=== PATIENT | male | born 1980 | race Hispanic/Latino ===

== ENCOUNTER 2017-10-28 07:16 | Observation (INO) | payer BC ==
[2017-10-27 09:58] LABS: BASOPHILS # (AUTO) 0.1 (0.0-0.1); BASOPHILS % 0.7 % (0.0-1.0); EOSINOPHILS # (AUTO) 0.2 (0.0-0.4); EOSINOPHILS % 1.7 % (0.0-6.0); HEMATOCRIT 45.8 % (38.2-49.6); HEMOGLOBIN 16.4 g/dL (14.0-18.0); LYMPHOCYTES # (AUTO) 2.8 (1.0-3.2); LYMPHOCYTES % 30.8 % (18.0-39.1); MEAN CORPUSCULAR HEMOGLOBIN 31.2 pg (28-32); MEAN CORPUSCULAR HGB CONC 35.8 g/dL (31-35); MEAN CORPUSCULAR VOLUME 87.2 fL (81-99); MONOCYTES # (AUTO) 0.7 (0.2-0.8); MONOCYTES % 7.5 % (4.4-11.3); NEUTROPHILS # (AUTO) 5.4 (2.1-6.9); PLATELET COUNT 273 x10e3/uL (140-360); RED BLOOD COUNT 5.25 x10e6/uL (4.3-5.7); RED CELL DISTRIBUTION WIDTH 12.8 % (11.7-14.4)
[~2017-10-28] VITALS: Ht 170.2 cm; Wt 84.4 kg
[2017-10-28] MEDS ORDERED: BUPIVACAINE 0.25% 30ML SDV INJ ONE (09:57)
[2017-10-28] MEDS: DEXTROSE 5%/LACTATED RINGERS 1,000 ML IV SCH ×2 (12:39→20:46)
[2017-10-28] MEDS ORDERED: KETOROLAC TROMETHAMINE 30 MG/ML VIAL IV PRN (12:45)
[2017-10-28] MEDS ORDERED: ACETAMINOPHEN 1000 MG/100 ML IV PRN (12:45)
[2017-10-28] MEDS ORDERED: HYDROMORPHONE 1MG/1ML INJ IV PRN (12:45)
[2017-10-28 13:49] VITALS: BP 125/75
[2017-10-28] MEDS ORDERED: CEFAZOLIN SOD 1 GM/NS 50ML 50 ML IV SCH (14:00)
[2017-10-28] MEDS ORDERED: PANTOPRAZOLE 40 MG 10ML VIAL IV SCH (14:00)
--- NOTE | 2017-10-28 15:04 | Operative Report ---
DATE OF PROCEDURE: October 28, 2017 PREOPERATIVE DIAGNOSIS: Recurrent ventral hernia. POSTOPERATIVE DIAGNOSIS: Recurrent ventral hernia. OPERATION PERFORMED: Repair of recurrent ventral hernia with Physiomesh. ANESTHESIA: General. COMPLICATIONS: None. ESTIMATED BLOOD LOSS: Minimal. DESCRIPTION OF PROCEDURE: With the patient lying in bed in the supine position, under good general endotracheal anesthesia, the abdomen was prepped with Betadine solution and draped in the usual manner. A midline incision was performed above the umbilicus and immediately herniation was encountered about an inch above the umbilicus. This was dissected all the way circumferentially. The patient had a previous repair with Ultrapro mesh. The mesh was very well incorporated and the patient had simply blown a hole right through the center of the of the Ultrapro mesh. There were several other small holes around the larger hole. All of the hernias were then slowly and carefully dissected and reduced back to the intra-abdominal cavity. The smaller holes were then closed with interrupted sutures of 0 Ethibond. Examination at this point did not reveal any other defects, but the area that had to be repaired was large. We decided the best way to do it was to repair it from underneath since the rest of the Ultrapro mesh appeared to be intact. A Physiomesh, the small one was then placed intra-abdominally and 6 sutures were used in each corner using 0 Prolene to anchor all 6 corners, and after this was done, the mesh was then further tacked with the tacker all the way around. This gave us a satisfactory closure without any tension. After this was done, the hernia defect was then closed transversely using interrupted sutures of 0 Ethibond. The subcutaneous tissue was then inspected and hemostasis was ascertained. All layers were infiltrated on the way out with solution of 0.25% Marcaine. Subcutaneous tissue was approximated with 2-0 Vicryl and the skin was closed with clips. A dressing was applied. The sponge, lap, and needle count was correct. The patient tolerated the procedure well and returned to the recovery room in stable condition. Job#: [id number]
[2017-10-28] MEDS ORDERED: GLYCOPYRROLATE INJ 1MG/ 5 ML SYR ONE (15:09)
[2017-10-28] MEDS ORDERED: ACETAMINOPHEN 1000 MG/100 ML IV ONE (15:09)
[2017-10-28] MEDS ORDERED: KETOROLAC TROMETHAMINE 30 MG/ML VIAL ONE (15:09)
[2017-10-28] MEDS ORDERED: ROCURONIUM BROMIDE 10 MG/ML 5ML VIAL ONE (15:09)
[2017-10-28] MEDS ORDERED: LIDOCAINE HCL 2% LOCAL INJ 5 ML SDV VIAL INJ ONE (15:09)
[2017-10-28] MEDS ORDERED: PROPOFOL IV EMULSION 10 MG/ML 20 ML VIAL ONE (15:09)
[2017-10-28] MEDS ORDERED: DEXAMETHASONE SOD PHOS INJ 4 MG/ML VIAL ONE (15:09)
[2017-10-28] MEDS ORDERED: ONDANSETRON HCL INJ 2 MG/ML VIAL ONE (15:09)
[2017-10-28] MEDS ORDERED: SEVOFLURANE INHAL SOLN 250 ML PEN BTL ONE (15:09)
[2017-10-28] MEDS ORDERED: NEOSTIGMINE 5 MG/5ML SYR ONE (15:09)
[2017-10-28] MEDS ORDERED: MIDAZOLAM HCL 2 MG/2 ML VIAL ONE (15:57)
[2017-10-28] MEDS ORDERED: FENTANYL CITRATE/PF 100MCG/2 ML INJ ONE (15:57)
[2017-10-28 16:29] VITALS: BP 125/75
[2017-10-28 20:00] VITALS: BP 115/66
[2017-10-28] MEDS: CEFAZOLIN SOD 1 GM VIAL IV SCH (20:35)
[2017-10-28] MEDS: HYDROCODONE/APAP 7.5MG-325MG 1 EA TAB PO PRN (23:25)
[2017-10-29] VITALS: BP 115/66
[2017-10-29 00:55] VITALS: BP 121/71
[2017-10-29] MEDS: CEFAZOLIN SOD 1 GM VIAL IV SCH (01:05)
[2017-10-29 04:00] VITALS: BP 108/54
[2017-10-29 06:45] LABS: BASOPHILS % 0.2 % (0.0-1.0); EOSINOPHILS % 0.2 % (0.0-6.0); HEMATOCRIT 40.7 % (38.2-49.6); HEMOGLOBIN 14.3 g/dL (14.0-18.0); LYMPHOCYTES # (AUTO) 2.7 (1.0-3.2); LYMPHOCYTES % 19.1 % (18.0-39.1); MEAN CORPUSCULAR HEMOGLOBIN 30.8 pg (28-32); MEAN CORPUSCULAR HGB CONC 35.1 g/dL (31-35); MEAN CORPUSCULAR VOLUME 87.7 fL (81-99); NEUTROPHILS # (AUTO) 10.4 (2.1-6.9); NEUTROPHILS % 73.1 % (38.7-80.0); PLATELET COUNT 277 x10e3/uL (140-360); RED BLOOD COUNT 4.64 x10e6/uL (4.3-5.7); RED CELL DISTRIBUTION WIDTH 12.8 % (11.7-14.4)
[2017-10-29 07:12] LABS: ANION GAP 14.8 mmol/L (8-16); BLOOD UREA NITROGEN 14 mg/dL (7-26); BUN/CREATININE RATIO 16 (6-25); CALCIUM 8.8 mg/dL (8.4-10.2); CARBON DIOXIDE 24 mmol/L (22-29); CHLORIDE 105 mmol/L (98-107); CREATININE, SERUM 0.86 mg/dL (0.72-1.25); EST GLOMERULAR FILTRATION RATE > 60 ML/MIN (60-); GLUCOSE 95 mg/dL (74-118); POTASSIUM 3.8 mmol/L (3.5-5.1); SODIUM 140 mmol/L (136-145)
[2017-10-29 08:27] VITALS: BP 133/66
[2017-10-29] MEDS: HYDROCODONE/APAP 7.5MG-325MG 1 EA TAB PO PRN (10:29)
== END 2017-10-29 10:47 | disposition home or self-care (01) ==
LOC: OR 07:16 → IMCU 13:32
PROVIDERS: ADMIT Surgery; ATTEND Surgery
DX: K43.2 Incisional hernia without obstruction or gangrene (principal)
CPT/HCPCS: 36415 ×2; 49565; 49568; 80048; 85025 ×2; G0378 ×2; J0690 ×2; J2250; J7120; J1100; J1885; J2001; J2405